=== PATIENT | female | born 1940 | race Caucasian/White ===

== ENCOUNTER 2020-12-23 20:16 | Emergency (ER) | payer MEDICARE, BC ==
[~2020-12-23] VITALS: Ht 172.7 cm; Wt 81.0 kg
[2020-12-23 20:31] VITALS: BP 126/73
--- NOTE | 2020-12-23 20:46 | NUR ---
Pt. verbalized to staff she does not want to be seen at this time. Denies any sob, will continue to monitor at home. Ambulatory to car with daughter in no distress.
== END 2020-12-23 23:46 | disposition left against medical advice (07) ==
LOC: ER 20:18
DX: R06.00 Dyspnea, unspecified (principal); Z53.21 Procedure and treatment not carried out due to patient leaving prior to being seen by health care provider

== ENCOUNTER 2020-12-27 12:08 | Emergency (ER) | payer MEDICARE, BC ==
[~2020-12-27] VITALS: Ht 170.2 cm; Wt 81.0 kg
[2020-12-27] MEDS ORDERED: normal saline 1000ml 1,000 ML IV ONE (12:50)
--- NOTE | 2020-12-27 12:58 | NUR ---
NO BEDS AVAILABLE IN ER, [employer] SECRETARY AND PROVIDER AWARE, GAVE PT ICE WATER TO SIP, SHE IS SITTING IN FRONT OF FAN, FAMILY IS WITH PT, IV STARTED, INFUSING NS W/O
[2020-12-27] MEDS ORDERED: ketorolac trometh. 30mg/ml inj. IV ONE (13:00)
[2020-12-27] MEDS ORDERED: ondansetron/PF 4mg/2ml inj IV ONE (13:00)
[2020-12-27 13:21] LABS: BASOPHILS % (AUTO) 0.5 % (0-1); EOSINOPHILS % (AUTO) 0.1 % (0-6); HEMATOCRIT 46.4 % (35.0-45.0); HEMOGLOBIN 15.6 g/dl (12.0-16.0); LYMPHOCYTES # (AUTO) 0.9 X10'3 (1.1-4.8); LYMPHOCYTES % (AUTO) 24.8 % (21-51); MEAN CORPUSCULAR HEMOGLOBIN 29.7 PG (27.0-31.0); MEAN CORPUSCULAR HGB CONC 33.7 g/dL (33.0-36.5); MEAN CORPUSCULAR VOLUME 88.2 FL (78-98); MEAN PLATELET VOLUME 8.8 FL (7.4-10.4); MONOCYTES # (AUTO) 0.4 X10'3 (0-0.9); MONOCYTES % (AUTO) 11.1 % (2-12); NEUTROPHILS # (AUTO) 2.3 X10'3 (1.8-7.7); NEUTROPHILS % (AUTO) 63.5 % (42-75); PLATELET COUNT 184 X10'3 (140-440); RED BLOOD COUNT 5.26 X10'6 (4.20-5.60); WHITE BLOOD COUNT 3.7 X10'3 (4.5-11.0)
[2020-12-27 13:24] LABS: D-DIMER 0.55 MG/L FEU (0-0.50)
[2020-12-27 13:51] VITALS: BP 117/73
[2020-12-27 13:53] LABS: ALANINE AMINOTRANSFERASE 44 U/L (12-78); ALBUMIN 4.1 G/DL (3.4-5.0); ALBUMIN/GLOBULIN RATIO 1.1 (1.1-1.5); ALKALINE PHOSPHATASE 54 IU/L (46-116); ANION GAP 14 (8-16); ASPARTATE AMINO TRANSFERASE 21 U/L (10-37); BILIRUBIN,TOTAL 0.5 MG/DL (0.1-1.0); BLOOD UREA NITROGEN 18 MG/DL (7-18); BUN/CREATININE RATIO 23.7 (6.6-38.0); C-REACTIVE PROTEIN 0.08 MG/DL (0.0-0.5); CALCIUM 9.4 MG/DL (8.5-10.1); CHLORIDE 100 MMOL/L (99-107); CREATININE 0.76 MG/DL (0.40-0.90); FERRITIN 151 NG/ML (8-252); GLUCOSE 145 MG/DL (70-104); LACTATE DEHYDROGENASE 225 U/L (81-234); POTASSIUM 3.5 MMOL/L (3.5-5.1); SODIUM 139 MMOL/L (135-145); TOTAL CARBON DIOXIDE 25.5 MMOL/L (24-32); TOTAL PROTEIN 7.7 G/DL (6.4-8.2); eGFR 74 ML/MIN
--- NOTE | 2020-12-27 14:15 | NUR ---
pt seen and assessed by provider
== END 2020-12-27 14:15 | disposition home or self-care (01) ==
LOC: ER 12:10
DX: U07.1 COVID-19 (principal); E86.0 Dehydration; R53.83 Other fatigue; R51.9 Headache, unspecified; R53.1 Weakness; Z88.5 Allergy status to narcotic agent
CPT/HCPCS: 36415; 71045; 80053; 82728; 83615; 84145; 85025; 85379; 85384; 86140; 96361; 96374; 96375; 99284; J1885; J2405; J7030